=== PATIENT | female | born 1975 | race Hispanic/Latino ===

== ENCOUNTER 2017-08-20 12:33 | Emergency (ER) | payer BC ==
[2017-08-20 12:43] VITALS: RESP 18; O2SAT 97
--- NOTE | 2017-08-20 13:10 | C.PDOC ---
History Of Present Illness 42 yr old female with PMHx of HTN (compliant with meds), presents to the ER for vaginal bleeding since last night. Patient is s/p ZANE-BSO in April 2017 done at [facility] for O[facility]. Patient states the bleeding started after having sexual intercourse, reports has had sexual intercourse since the surgery but never had bleeding. Patient reports of mild cramping. Denies fever, nausea, vomiting, dysuria, weakness or numbness. Time Seen by Provider: 08/20/17 12:49 Chief Complaint (Nursing): Female Genitourinary History Per: Patient History/Exam Limitations: no limitations Onset/Duration Of Symptoms: Sudden Onset (Last night) Past Medical History Reviewed: Historical Data, Nursing Documentation, Vital Signs Vital Signs: Last Vital Signs Temp 98.9 F 08/20/17 13:30 Pulse 119 H 08/20/17 13:30 Resp 18 08/20/17 13:30 BP 154/93 H 08/20/17 13:30 Pulse Ox 97 08/20/17 13:30 - Medical History PMH: Depression, HTN, Hypothyroidism - [facility] Procedures MONITORING NOS (03/16/13) LOW CERVICAL (03/16/13) Family History: States: No Known Family Hx - Social History Hx Alcohol Use: No Hx Substance Use: No - Immunization History Hx Tetanus Toxoid Vaccination: No Hx Influenza Vaccination: Yes Hx Pneumococcal Vaccination: No Review Of Systems Except As Marked, All Systems Reviewed And Found Negative. Constitutional: Negative for: Fever Gastrointestinal: Negative for: Nausea, Vomiting Genitourinary: Positive for: Vaginal Bleeding. Negative for: Dysuria Neurological: Negative for: Weakness, Numbness Physical Exam - Physical Exam Appears: Non-toxic, Other (Anxious) Skin: Warm, Dry, No Pale, No Rash, No Jaundice Head: Atraumatic, Normacephalic Eye(s): bilateral: Normal Inspection, PERRL, EOMI, Other (No palor) Oral Mucosa: Moist Respiratory: Normal Breath Sounds Gastrointestinal/Abdominal: Normal Exam, Soft, No Tenderness, No Guarding, No Rebound Pelvic: Normal Bimanual Exam, Other (RN Lucas as river tester. Clots. No active bleeding. No BRB.) Extremity: Normal ROM, No Swelling Neurological/Psych: Oriented x3, Normal Speech, Other (Anxious but calm) Gait: Steady ED Course And Treatment - Laboratory Results Result Diagrams: 08/20/17 13:39 O2 Sat by Pulse Oximetry: 97 (RA) Pulse Ox Interpretation: Normal Progress - Re-Evaluation Re-evaluation Note: 08/20/17 13:10 D/W DR Padilla RUELAS OB SYSTEMS COORDINATOR AWARE OF ER FINDINGS, ADVISED PT TO FU W HER OBGYN, AVOID INTERCOURSE UNTIL FU 08/20/17 14:16 APPEARS COMFORTABLE NAD. PS PREV DX W TACHYCARDIA "USUALLY BC IM NERVOUS IN HOSPITALS". DENIES PALPITATIONS, DIZZY, CP OR OTHER ASSOC SX. PENDING DOCUMENT CONTROL COORDINATOR ONC REEVAL 09/23. ADVISED FU, AVOID INTERCOURSE UNTIL FU - Data Reviewed Data Reviewed: Lab, EKG Medical Decision Making Medical Decision Making: PLAN: * EKG * CBC Disposition Counseled Patient/Family Regarding: Studies Performed, Diagnosis, Need For Followup - Disposition Referrals: YOUR,DOCUMENT CONTROL COORDINATOR ONCOLOGIST [Other] Disposition: HOME/ ROUTINE Disposition Time: 14:18 Condition: IMPROVED Instructions: Dysfunctional Uterine Bleeding (ED) Forms: [facility] (Macedonian) - Clinical Impression Clinical Impression: DUB (dysfunctional uterine bleeding) - Scribe Statement The provider has reviewed the documentation as recorded by the Scribe Indira Martínez Provider Attestation: All medical record entries made by the Scribe were at my direction and personally dictated by me. I have reviewed the chart and agree that the record accurately reflects my personal performance of the history, physical exam, medical decision making, and the department course for this patient. I have also personally directed, reviewed, and agree with the discharge instructions and disposition.
[2017-08-20 13:32] VITALS: BP 154/93; PULSE 119; TEMP 98.9
[2017-08-20 13:43] LABS: HEMATOCRIT 39.8 % (34.0-47.0); MEAN CELL VOLUME 84.6 fL (81.0-99.0); MEAN CORPUSCULAR HEMOGLOBIN 28.7 pg (27.0-31.0); MEAN PLATELET VOLUME 8.2 fL (7.2-11.7); RED CELL DISTRIBUTION WIDTH 13.2 % (11.5-14.5); WHITE BLOOD COUNT 8.3 K/uL (4.8-10.8)
--- NOTE | 2017-08-23 12:17 | CARD ---
APPROVED REPORT EKG Measurement Heart [id number] <Conclusion> Sinus tachycardia Nonspecific T wave abnormality Abnormal ECG
== END 2017-08-20 14:37 | disposition home or self-care (01) ==
LOC: C.ER 12:33
DX: N93.8 Other specified abnormal uterine and vaginal bleeding (principal); Z90.710 Acquired absence of both cervix and uterus

== ENCOUNTER 2018-02-24 19:51 | Emergency (ER) | payer BC ==
[2018-02-24 20:03] VITALS: BP 142/90; PULSE 80; RESP 14; TEMP 98; O2SAT 99
[2018-02-24] MEDS ORDERED: Tetracaine 0.5% Ophth 2 ML BOTTLE OD ONE (20:37)
[2018-02-24] MEDS ORDERED: Fluorescein 1 mg Ophthalmic Strip OD ONE (20:38)
--- NOTE | 2018-02-24 20:50 | C.PDOC ---
History Of Present Illness 43 y/o female c/o itching and burning to right eye this evening with watery discharge, then rubbed it and now c/o pain. with mild blurry vision. no fb sensation. pt wears reading glasses, no contact lenses. Time Seen by Provider: 02/24/18 20:14 Chief Complaint (Nursing): Eye Problem History Per: Patient History/Exam Limitations: no limitations Onset/Duration Of Symptoms: Hrs (3) Current Symptoms Are (Timing): Still Present Injury To Eye?: No Severity: Moderate Quality: Burning, "Pain" Wears Contact Lens?: No Associated Symptoms: denies: Decreased Vision, FB Sensation Past Medical History Reviewed: Historical Data, Nursing Documentation, Vital Signs Vital Signs: Last Vital Signs Temp 98 F 02/24/18 20:01 Pulse 80 02/24/18 20:01 Resp 14 02/24/18 20:01 BP 142/90 02/24/18 20:01 Pulse Ox 99 02/24/18 22:28 - Medical History PMH: Depression, HTN, Hypothyroidism - [facility] Procedures MONITORING NOS (03/16/13) LOW CERVICAL (03/16/13) Family History: States: Unknown Family Hx - Social History Hx Alcohol Use: No Hx Substance Use: No - Immunization History Hx Tetanus Toxoid Vaccination: No Hx Influenza Vaccination: Yes Hx Pneumococcal Vaccination: No Review Of Systems Constitutional: Negative for: Fever, Chills Eyes: Positive for: Pain, Conjunctivae Inflammation, Other (itching). Negative for: Vision Change ENT: Negative for: Ear Pain, Nose Pain, Mouth Pain Skin: Negative for: Rash Neurological: Negative for: Weakness, Numbness, Headache Physical Exam - Physical Exam Appears: Non-toxic, No Acute Distress Skin: Warm, Dry Head: Atraumatic, Normacephalic Eye(s): bilateral: PERRL, EOMI, right: Other (lateral conjunctival injection), left: Normal Inspection Nose: No Discharge Neck: Supple Neurological/Psych: Oriented x3, Normal Speech, Normal Cognition ED Course And Treatment O2 Sat by Pulse Oximetry: 99 Medical Decision Making Medical Decision Making: one drop tetracaine applied to right eye, follow by fluorescein strip. no uptake noted under wood'slamp; no corneal abrasion noted. pt with itching and buning, with irritation after rubbing; tx for allergic conjunctivitis. Disposition Counseled Patient/Family Regarding: Studies Performed, Diagnosis, Rx Given - Disposition Referrals: Dutch Cason MD [Staff Provider] - Edison Yo [Staff Provider] - Disposition: HOME/ ROUTINE Disposition Time: 21:28 Condition: GOOD Additional Instructions: Please use one half inch ribbon ointment in right eye 2 times a day. Tylenol or Motrin for pain. Follow up with Dr Cason and Dr Yo (eye doctor) on Tuesday. Return to ER for any worsening symptoms., Prescriptions: Erythromycin 0.5% [Ilytocin] 3.5 gm OD BID #1 tube Instructions: Conjunctivitis (Noninfectious Pinkeye) (DC) Forms: [facility] (Indonesian), General Discharge Instructions - Clinical Impression Clinical Impression: Conjunctivitis, allergic
[2018-02-24] MEDS ORDERED: Tetracaine 0.5% Ophth (OR ONLY) ONE (20:58)
[2018-02-24] MEDS ORDERED: Fluorescein 1 mg Ophthalmic Strip ONE (20:58)
== END 2018-02-24 21:43 | disposition home or self-care (01) ==
LOC: C.ER 19:51
DX: H10.11 Acute atopic conjunctivitis, right eye (principal)